=== PATIENT | male | born 1990 | race Caucasian/White ===

== ENCOUNTER 2023-08-03 14:38 | Emergency (ER) | payer MEDICAID ==
[~2023-08-03] VITALS: Ht 175.3 cm; Wt 60.0 kg
[2023-08-03 14:50] VITALS: BP 143/92; PULSE 108; O2SAT 97
[2023-08-03 18:04] VITALS: RESP 14
[2023-08-03 18:51] VITALS: TEMP 98.5
== END 2023-08-03 18:52 | disposition home or self-care (01) ==
LOC: ER 14:39
DX: S00.81XA Abrasion of other part of head, initial encounter (principal); S09.90XA Unspecified injury of head, initial encounter; T71.9XXA Asphyxiation due to unspecified cause, initial encounter; Y93.89 Activity, other specified; Y92.89 Other specified places as the place of occurrence of the external cause; Y99.8 Other external cause status
CPT/HCPCS: 70450; 99284